=== PATIENT | female | born 1990 | race Two or more races ===

== ENCOUNTER 2022-06-28 21:28 | Emergency (ER) | payer MEDICAID ==
[~2022-06-28] VITALS: Ht 170.2 cm; Wt 68.2 kg
[2022-06-28] MEDS ORDERED: IPRATROPIUM BROM 0.5 MG/2.5ML INH SOL NEB ONE ×2 (21:30→23:45)
[2022-06-28] MEDS ORDERED: ALBUTEROL SULF 2.5 MG/0.5ML(0.5%) NEB SOLN NEB ONE ×2 (21:30→23:45)
[2022-06-28] MEDS ORDERED: methylPREDNISolone SOD SUCC 125 MG/2 ML VL IV ONE (22:00)
[2022-06-28 22:21] LABS: Basophils # (auto) 0.1 10 ^3/uL (0-0.2); Basophils % (auto) 0.8 % (0.0-2.0); Eosinophils # (auto) 0.5 10 ^3/uL (0-0.8); Mean Corpuscular Hemoglobin 28.2 pg (28.0-32.0); Monocytes # (auto) 0.6 10 ^3/uL (0-1.3); Neutrophils # (auto) 6.5 10 ^3/uL (1.6-8.6)
[2022-06-28 22:23] LABS: Eosinophils % (auto) 4.9 % (0.0-7.0); Hematocrit 43.1 % (36.0-46.0); Hemoglobin 14.2 g/dL (12.2-16.2); Lymphocytes # (auto) 3.4 10 ^3/uL (0.4-5.4); Lymphocytes % (auto) 31.1 % (10.0-50.0); Mean Corpuscular Hgb Conc. 32.9 g/dL (32.0-36.0); Mean Corpuscular Volume 85.6 fL (80.0-100.0); Neutrophils % (auto) 58.2 % (37.0-80.0); Red Blood Cells 5.04 10^6/uL (4.0-5.20); Red Cell Distribution Width 13.9 % (11.8-14.3); White Blood Cell 11.1 10^3/uL (4.4-10.8)
[2022-06-28] MEDS ORDERED: DexAMETHasone SOD PHOS 10MG/1ML VIAL INJ IV ONE (22:30)
[2022-06-28 22:35] LABS: Albumin 3.9 g/dL (3.4-5.0); Calcium 8.5 mg/dL (8.5-10.1); Potassium 3.7 mmol/L (3.5-5.1)
[2022-06-28 22:38] LABS: BUN/Creatinine Ratio 17.7 (10.0-20.0); Bilirubin, Total 0.8 mg/dL (0.2-1.0); Total Protein 7.5 g/dL (6.4-8.2)
[2022-06-28] MEDS: MAGNESIUM SULFATE 1GM/100ML 100 ML IV SCH (23:53)
[2022-06-29] MEDS: MAGNESIUM SULFATE 1GM/100ML 100 ML IV SCH (00:50)
[2022-06-29] MEDS ORDERED: ALBUTEROL SULF 2.5 MG/0.5ML(0.5%) NEB SOLN NEB ONE (01:30)
[2022-06-29] MEDS ORDERED: IPRATROPIUM BROM 0.5 MG/2.5ML INH SOL NEB ONE (01:30)
[2022-06-29] MEDS ORDERED: TERBUTALINE SULFATE 1 MG/ML 1ML VIAL SC ONE (01:30)
[2022-06-29] MEDS ORDERED: ALBUTEROL SULF 2.5 MG/0.5ML(0.5%) NEB SOLN ONE (01:36)
[2022-06-29 03:00] VITALS: BP 112/68
[2022-06-29] MEDS ORDERED: PRED20TA2 PO (03:18)
[2022-06-29] MEDS ORDERED: FLUT1AER3 IN (03:18)
[2022-06-29] MEDS ORDERED: ALBU108A5 IN (03:18)
[2022-06-29 03:29] LABS: Urine Bacteria FEW /hpf (None Seen); Urine Blood Negative /uL (Negative); Urine Mucus MODERATE (None Seen); Urine Specific Gravity 1.022 (1.001-1.035); Urine WBC 1 /hpf (0 - 5)
== END 2022-06-29 03:33 | disposition home or self-care (01) ==
LOC: ER 21:28
DX: J45.902 Unspecified asthma with status asthmaticus (principal)
CPT/HCPCS: 36415; 71045; 80053; 81001; 85025; 94640; 96365; 96366; 96372; 96375; 99285; J1100; J3105; J3475; J7644

== ENCOUNTER 2023-04-25 18:01 | Observation (INO) | payer OTHER ==
[~2023-04-25 18:01] MED LIST: ALBU108A5 IN; FLUT1AER3 IN; PRED20TA2 PO
[2023-04-25 19:19] LABS: Urine Epithelial Cast None Seen /hpf (<5)
[2023-04-25 19:29] LABS: Urine Bacteria FEW /hpf (None Seen); Urine Blood Negative /uL (Negative); Urine Clarity Clear (Clear); Urine Color Yellow (Yellow); Urine Mucus FEW (None Seen); Urine Protein, UAD TRACE (Negative); Urine Specific Gravity 1.023 (1.001-1.035); Urine Urobilinogen Normal (Negative); Urine WBC 3 /hpf (0 - 5); Urine pH 6.5 (5.0-8.0)
[2023-04-25 19:47] LABS: Amphetamine Screen, Urine Neg (NEGATIVE); Barbiturate Scree,Urine Neg (NEGATIVE); Benzodiazephine Screen, Urine Neg (NEGATIVE); Cannabinoid Screen, Urine Neg (NEGATIVE); Cocaine Screen, Urine Neg (NEGATIVE); Opiate Scree,Urine Neg (NEGATIVE); Phencyclidine Screen, Urine Neg (NEGATIVE)
== END 2023-04-25 19:32 | disposition left against medical advice (07) ==
LOC: LDRP 18:01
PROVIDERS: ADMIT Obstetrics & Gynecology; ATTEND Obstetrics & Gynecology
DX: O99.323 Drug use complicating pregnancy, third trimester (principal); O62.9 Abnormality of forces of labor, unspecified; O76 Abnormality in fetal heart rate and rhythm complicating labor and delivery; F11.90 Opioid use, unspecified, uncomplicated; Z3A.40 40 weeks gestation of pregnancy; Z79.899 Other long term (current) drug therapy
CPT/HCPCS: 59025; 80307; 81001; 81002; 94760; G0378